=== PATIENT | female | born 1995 | race Asian ===

== ENCOUNTER → 2016-03-21 | Outpatient (REF) | payer OTHER ==
[2016-03-21 18:10] LABS: PERCENT SATURATION 56.4 % (13.2-37.4)
== END ==
LOC: M LAB REF 16:21
PROVIDERS: ATTEND Internal Medicine Medical Oncology
DX: D56.8 Other thalassemias (principal)

== ENCOUNTER 2016-03-22 08:29 | Outpatient (CLI) | payer OTHER ==
[~2016-03-22] VITALS: Ht 160 cm; Wt 67.8 kg
[~2016-03-22 08:29] MED LIST: ACETAMINOPHEN TAB 650MG DOSE (2X325MG) PO SCH; diphenhydrAMINE 25 MG CAP PO SCH
[2016-03-22 10:21] VITALS: BP 118/74
[2016-03-22 14:00] VITALS: BP 118/74
== END 2016-03-22 17:00 | disposition home or self-care (01) ==
LOC: M OPCLI4PR 08:29 → M PED 08:33 → M OPCLI4PR 17:00
PROVIDERS: ATTEND Internal Medicine Medical Oncology
DX: D56.9 Thalassemia, unspecified (principal)
CPT/HCPCS: 36430; P9016

== ENCOUNTER → 2016-04-16 | Outpatient (REF) | payer OTHER ==
[~2016-04-16] MED LIST changes: -ACETAMINOPHEN TAB 650MG DOSE (2X325MG) PO SCH; +BIRTHCONTROL PILL PO; +FOLI1TAB2 PO; +ZYRT10CA PO; +[UNRECOGNIZED DRUG - CODE] PO; -diphenhydrAMINE 25 MG CAP PO SCH
== END ==
LOC: M LAB REF 13:12
PROVIDERS: ATTEND Internal Medicine Medical Oncology
DX: D56.5 Hemoglobin E-beta thalassemia (principal); E83.119 Hemochromatosis, unspecified

== ENCOUNTER 2016-04-17 07:35 | Outpatient (CLI) | payer OTHER ==
[~2016-04-17] VITALS: Ht 160 cm; Wt 67.8 kg
[2016-04-17] MEDS ORDERED: ACETAMINOPHEN TAB 650MG DOSE (2X325MG) PO ONE (08:00)
[2016-04-17] MEDS ORDERED: diphenhydrAMINE 50 MG CAP PO ONE (08:00)
[2016-04-17] MEDS ORDERED: [UNRECOGNIZED DRUG - CODE] PO (08:16)
[2016-04-17] MEDS ORDERED: FOLI1TAB2 PO (08:17)
[2016-04-17] MEDS ORDERED: BIRTHCONTROL PILL PO (08:20)
[2016-04-17] MEDS ORDERED: ZYRT10CA PO (08:20)
== END 2016-04-17 13:35 | disposition home or self-care (01) ==
LOC: M INFU 07:35
PROVIDERS: ATTEND Internal Medicine Medical Oncology
DX: D56.5 Hemoglobin E-beta thalassemia (principal); Z79.899 Other long term (current) drug therapy; Z88.8 Allergy status to other drugs, medicaments and biological substances
CPT/HCPCS: 36415; 36430; 86850; 86900; 86901; 86920; P9016

== ENCOUNTER → 2016-05-14 | Outpatient (REF) | payer OTHER | LOC: M LAB REF 13:03 | PROVIDERS: ATTEND Internal Medicine Medical Oncology | DX: E83.118 Other hemochromatosis (principal); D56.8 Other thalassemias ==

== ENCOUNTER 2016-05-15 06:46 | Outpatient (CLI) | payer OTHER ==
[~2016-05-15] VITALS: Ht 160 cm; Wt 61.0 kg
[2016-05-15] MEDS ORDERED: diphenhydrAMINE 25 MG CAP PO SCH (07:00)
[2016-05-15] MEDS ORDERED: ACETAMINOPHEN TAB 650MG DOSE (2X325MG) PO SCH (07:01)
[2016-05-15 08:50] VITALS: BP 137/96
[2016-05-15 14:00] VITALS: BP 126/64
== END 2016-05-15 18:35 | disposition home or self-care (01) ==
LOC: M INFU 06:46 → M MSPAV 08:53 → M INFU 18:35
PROVIDERS: ATTEND Internal Medicine Medical Oncology
DX: D56.5 Hemoglobin E-beta thalassemia (principal)
CPT/HCPCS: 36415; 36430; 86850; 86920; P9016

== ENCOUNTER → 2016-06-11 | Outpatient (REF) | payer OTHER | LOC: M LAB REF 12:29 | PROVIDERS: ATTEND Internal Medicine Medical Oncology | DX: D56.5 Hemoglobin E-beta thalassemia (principal) ==

== ENCOUNTER → 2016-06-11 | Outpatient (REF) | payer OTHER ==
[2016-06-11 14:00] LABS: PERCENT SATURATION 47.4 % (13.2-37.4)
== END ==
LOC: M LAB REF 12:13
PROVIDERS: ATTEND Internal Medicine Medical Oncology
DX: E83.119 Hemochromatosis, unspecified (principal); D56.9 Thalassemia, unspecified

== ENCOUNTER 2016-06-12 07:18 | Outpatient (CLI) | payer OTHER ==
[~2016-06-12] VITALS: Ht 160 cm; Wt 67.8 kg
[~2016-06-12 07:18] MED LIST changes: +ACETAMINOPHEN TAB 650MG DOSE (2X325MG) PO SCH; +diphenhydrAMINE 25 MG CAP PO SCH
== END 2016-06-12 12:10 | disposition home or self-care (01) ==
LOC: M INFU 07:18
PROVIDERS: ATTEND Internal Medicine Medical Oncology
DX: D56.5 Hemoglobin E-beta thalassemia (principal); Z79.899 Other long term (current) drug therapy; Z79.3 Long term (current) use of hormonal contraceptives; Z88.8 Allergy status to other drugs, medicaments and biological substances
CPT/HCPCS: 36430; P9016

== ENCOUNTER → 2016-07-10 | Outpatient (REF) | payer OTHER ==
[~2016-07-10] MED LIST changes: -ACETAMINOPHEN TAB 650MG DOSE (2X325MG) PO SCH; -diphenhydrAMINE 25 MG CAP PO SCH
== END ==
LOC: M LAB REF 16:38
PROVIDERS: ATTEND Nurse Practitioner Family
DX: D56.5 Hemoglobin E-beta thalassemia (principal)

== ENCOUNTER 2016-07-11 08:05 | Outpatient (CLI) | payer OTHER ==
[2016-07-11] MEDS ORDERED: ACETAMINOPHEN TAB 650MG DOSE (2X325MG) PO SCH (09:00)
[2016-07-11] MEDS ORDERED: diphenhydrAMINE 25 MG CAP PO SCH (09:00)
== END 2016-07-11 12:30 | disposition home or self-care (01) ==
LOC: M INFU 08:05
PROVIDERS: ATTEND Internal Medicine Medical Oncology
DX: D56.5 Hemoglobin E-beta thalassemia (principal); Z88.8 Allergy status to other drugs, medicaments and biological substances; Z79.3 Long term (current) use of hormonal contraceptives; Z79.899 Other long term (current) drug therapy
CPT/HCPCS: 36430; P9016

== ENCOUNTER 2016-08-07 07:39 | Outpatient (CLI) | payer OTHER ==
[~2016-08-07] VITALS: Ht 160 cm; Wt 67.3 kg
[~2016-08-07 07:39] MED LIST changes: +ACETAMINOPHEN TAB 650MG DOSE (2X325MG) PO ONE; -FOLI1TAB2 PO; +FOLI1TAB4 PO; +diphenhydrAMINE 50 MG CAP PO ONE
== END 2016-08-07 12:15 | disposition home or self-care (01) ==
LOC: M INFU 07:39
PROVIDERS: ATTEND Internal Medicine Medical Oncology
DX: D56.5 Hemoglobin E-beta thalassemia (principal); Z88.8 Allergy status to other drugs, medicaments and biological substances; Z79.3 Long term (current) use of hormonal contraceptives; Z79.899 Other long term (current) drug therapy
CPT/HCPCS: 36430; P9016

== ENCOUNTER → 2016-08-30 | Outpatient (REF) | payer OTHER ==
[~2016-08-30] MED LIST changes: -ACETAMINOPHEN TAB 650MG DOSE (2X325MG) PO ONE; -diphenhydrAMINE 50 MG CAP PO ONE
[2016-08-30 19:24] LABS: PERCENT SATURATION 46.9 % (13.2-37.4)
== END ==
LOC: M LAB REF 17:06
PROVIDERS: ATTEND Internal Medicine Medical Oncology
DX: E83.119 Hemochromatosis, unspecified (principal); D56.5 Hemoglobin E-beta thalassemia

== ENCOUNTER 2016-08-31 07:02 | Outpatient (CLI) | payer OTHER ==
[~2016-08-31 07:02] MED LIST changes: +ACETAMINOPHEN TAB 650MG DOSE (2X325MG) PO SCH; +diphenhydrAMINE 25 MG CAP PO SCH
== END 2016-08-31 11:45 | disposition home or self-care (01) ==
LOC: M INFU 07:02
PROVIDERS: ATTEND Internal Medicine Medical Oncology
DX: D56.5 Hemoglobin E-beta thalassemia (principal); Z88.8 Allergy status to other drugs, medicaments and biological substances; Z79.3 Long term (current) use of hormonal contraceptives; Z79.899 Other long term (current) drug therapy
CPT/HCPCS: 36430; P9016

== ENCOUNTER → 2016-10-01 | Outpatient (REF) | payer OTHER ==
[~2016-10-01] MED LIST changes: -ACETAMINOPHEN TAB 650MG DOSE (2X325MG) PO SCH; -diphenhydrAMINE 25 MG CAP PO SCH
== END ==
LOC: M LAB REF 16:48
PROVIDERS: ATTEND Nurse Practitioner Family
DX: D56.5 Hemoglobin E-beta thalassemia (principal)

== ENCOUNTER → 2016-10-01 | Outpatient (REF) | payer OTHER ==
[2016-10-01 21:21] LABS: PERCENT SATURATION 41.8 % (13.2-45.0)
== END ==
LOC: M LAB REF 13:08
PROVIDERS: ATTEND Internal Medicine Medical Oncology
DX: D56.5 Hemoglobin E-beta thalassemia (principal)

== ENCOUNTER 2016-10-02 07:10 | Outpatient (CLI) | payer OTHER ==
[~2016-10-02] VITALS: Ht 160 cm; Wt 67.8 kg
[~2016-10-02 07:10] MED LIST changes: +ACETAMINOPHEN TAB 650MG DOSE (2X325MG) PO SCH; +diphenhydrAMINE 25 MG CAP PO SCH
== END 2016-10-02 11:50 | disposition home or self-care (01) ==
LOC: M INFU 07:10
PROVIDERS: ATTEND Internal Medicine Medical Oncology
DX: D56.5 Hemoglobin E-beta thalassemia (principal); Z88.8 Allergy status to other drugs, medicaments and biological substances; Z79.899 Other long term (current) drug therapy; Z79.3 Long term (current) use of hormonal contraceptives
CPT/HCPCS: 36430; P9016

== ENCOUNTER → 2016-10-29 | Outpatient (REF) | payer OTHER ==
[~2016-10-29] MED LIST changes: -ACETAMINOPHEN TAB 650MG DOSE (2X325MG) PO SCH; -diphenhydrAMINE 25 MG CAP PO SCH
[2016-10-29 18:32] LABS: PERCENT SATURATION 33.2 % (13.2-45.0)
== END ==
LOC: M LAB REF 16:26
PROVIDERS: ATTEND Nurse Practitioner Family
DX: E83.119 Hemochromatosis, unspecified (principal); D56.5 Hemoglobin E-beta thalassemia

== ENCOUNTER 2016-10-30 06:42 | Outpatient (CLI) | payer OTHER ==
[2016-10-30] MEDS ORDERED: diphenhydrAMINE 25 MG CAP PO SCH (07:00)
[2016-10-30] MEDS ORDERED: ACETAMINOPHEN TAB 650MG DOSE (2X325MG) PO SCH (07:01)
== END 2016-10-30 13:15 | disposition home or self-care (01) ==
LOC: M INFU 06:42
PROVIDERS: ATTEND Internal Medicine Medical Oncology
DX: D56.5 Hemoglobin E-beta thalassemia (principal); Z88.8 Allergy status to other drugs, medicaments and biological substances; Z79.899 Other long term (current) drug therapy
CPT/HCPCS: 36430; P9016

== ENCOUNTER → 2016-11-26 | Outpatient (REF) | payer OTHER ==
[2016-11-26 20:55] LABS: PERCENT SATURATION 46.8 % (13.2-45.0)
== END ==
LOC: M LAB REF 16:58
PROVIDERS: ATTEND Nurse Practitioner Family
DX: D56.9 Thalassemia, unspecified (principal)

== ENCOUNTER 2016-11-27 11:18 | Outpatient (CLI) | payer OTHER ==
[~2016-11-27] VITALS: Ht 160 cm; Wt 65.8 kg
[2016-11-27] VITALS (7 sets, daily range): BP systolic 112–130; BP diastolic 58–84
[~2016-11-27 11:18] MED LIST changes: +ACETAMINOPHEN TAB 650MG DOSE (2X325MG) PO SCH; +diphenhydrAMINE 25 MG CAP PO SCH
== END 2016-11-27 18:30 | disposition home or self-care (01) ==
LOC: M OPCLI4PR 11:18 → M PED 11:23 → M OPCLI4PR 18:30
PROVIDERS: ATTEND Nurse Practitioner Family
DX: D56.5 Hemoglobin E-beta thalassemia (principal); Z88.8 Allergy status to other drugs, medicaments and biological substances; Z79.899 Other long term (current) drug therapy
CPT/HCPCS: 36430; P9016

== ENCOUNTER → 2016-12-25 | Outpatient (REF) | payer OTHER ==
[~2016-12-25] MED LIST changes: -ACETAMINOPHEN TAB 650MG DOSE (2X325MG) PO SCH; -diphenhydrAMINE 25 MG CAP PO SCH
[2016-12-25 19:36] LABS: PERCENT SATURATION 34.7 % (13.2-45.0)
== END ==
LOC: M LAB REF 16:20
PROVIDERS: ATTEND Internal Medicine Medical Oncology
DX: D56.5 Hemoglobin E-beta thalassemia (principal)

== ENCOUNTER 2016-12-26 06:39 | Outpatient (CLI) | payer OTHER ==
[~2016-12-26] VITALS: Ht 160 cm; Wt 67.8 kg
[2016-12-26] MEDS ORDERED: diphenhydrAMINE 25 MG CAP PO SCH (07:00)
[2016-12-26] MEDS ORDERED: ACETAMINOPHEN TAB 650MG DOSE (2X325MG) PO SCH (07:01)
[2016-12-26] MEDS ORDERED: diphenhydrAMINE 25 MG CAP As Ordered ONE (07:05)
[2016-12-26] MEDS ORDERED: ACETAMINOPHEN 325 MG TAB As Ordered ONE (07:06)
== END 2016-12-26 13:30 | disposition home or self-care (01) ==
LOC: M INFU 06:39
PROVIDERS: ATTEND Internal Medicine Medical Oncology
DX: D56.5 Hemoglobin E-beta thalassemia (principal); Z88.8 Allergy status to other drugs, medicaments and biological substances; Z79.899 Other long term (current) drug therapy
CPT/HCPCS: 36430; P9016

== ENCOUNTER → 2017-01-22 | Outpatient (REF) | payer OTHER ==
[2017-01-22 19:01] LABS: PERCENT SATURATION 25.8 % (13.2-45.0)
== END ==
LOC: M LAB REF 16:51
PROVIDERS: ATTEND Nurse Practitioner Family
DX: D56.9 Thalassemia, unspecified (principal); Z88.8 Allergy status to other drugs, medicaments and biological substances

== ENCOUNTER 2017-01-23 10:15 | Outpatient (CLI) | payer OTHER ==
[~2017-01-23 10:15] MED LIST changes: +ACETAMINOPHEN TAB 650MG DOSE (2X325MG) PO SCH; +diphenhydrAMINE 25 MG CAP PO SCH
== END 2017-01-23 16:45 | disposition home or self-care (01) ==
LOC: M INFU 10:15
PROVIDERS: ATTEND Nurse Practitioner Family
DX: D56.5 Hemoglobin E-beta thalassemia (principal); Z88.8 Allergy status to other drugs, medicaments and biological substances; Z79.899 Other long term (current) drug therapy
CPT/HCPCS: 36430; P9016

== ENCOUNTER → 2017-02-21 | Outpatient (REF) | payer OTHER ==
[2017-02-21 21:00] LABS: FERRITIN 3962 NG/ML (8-252); IRON (FE) 472 UG/DL (50-170); TOTAL IRON BINDING CAPACITY 1432 UG/DL (250-450)
[2017-02-22 08:17] LABS: IMMEDIATE SPIN CROSSMATCH 1 2
== END ==
LOC: M LAB REF 18:30
DX: D56.8 Other thalassemias (principal)

== ENCOUNTER 2017-02-22 07:52 | Outpatient (CLI) | payer OTHER ==
[2017-02-22] MEDS: diphenhydrAMINE 25 MG CAP PO (08:07)
[2017-02-22] MEDS: ACETAMINOPHEN TAB 650MG DOSE (2X325MG) PO (08:07)
== END 2017-02-22 12:00 | disposition home or self-care (01) ==
LOC: M INFU 07:52
DX: D56.5 Hemoglobin E-beta thalassemia (principal); Z88.8 Allergy status to other drugs, medicaments and biological substances; Z79.899 Other long term (current) drug therapy
CPT/HCPCS: 36430

== ENCOUNTER → 2017-03-21 | Outpatient (REF) | payer OTHER ==
[2017-03-21 20:48] LABS: IRON (FE) 326 UG/DL (50-170); PERCENT SATURATION 55.5 % (13.2-45.0); TOTAL IRON BINDING CAPACITY 587 UG/DL (250-450)
[2017-03-21 20:56] LABS: FERRITIN 3337 NG/ML (8-252)
== END ==
LOC: M LAB REF 18:57
DX: D56.5 Hemoglobin E-beta thalassemia (principal); E83.119 Hemochromatosis, unspecified

== ENCOUNTER 2017-03-22 06:56 | Outpatient (CLI) | payer OTHER ==
[2017-03-22] MEDS: diphenhydrAMINE 25 MG CAP PO (07:12)
[2017-03-22] MEDS: ACETAMINOPHEN TAB 650MG DOSE (2X325MG) PO (07:12)
[2017-03-22 07:31] LABS: IMMEDIATE SPIN CROSSMATCH 1 2
== END 2017-03-22 12:00 | disposition home or self-care (01) ==
LOC: M INFU 06:56
DX: D56.9 Thalassemia, unspecified (principal); Z79.899 Other long term (current) drug therapy; Z88.8 Allergy status to other drugs, medicaments and biological substances
CPT/HCPCS: 36430

== ENCOUNTER → 2017-04-18 | Outpatient (REF) | payer OTHER ==
[2017-04-18 19:29] LABS: IRON (FE) 714 UG/DL (50-170); PERCENT SATURATION 36.4 % (13.2-45.0)
[2017-04-18 19:34] LABS: FERRITIN 2586 NG/ML (8-252); TOTAL IRON BINDING CAPACITY 1962 UG/DL (250-450)
== END ==
LOC: M LAB REF 17:08
DX: D56.5 Hemoglobin E-beta thalassemia (principal); E83.118 Other hemochromatosis
CPT/HCPCS: 83550

== ENCOUNTER → 2017-04-18 | Outpatient (REF) | payer OTHER ==
[2017-04-19 11:08] LABS: IMMEDIATE SPIN CROSSMATCH 1 2
== END ==
LOC: M LAB REF 18:04
PROVIDERS: Pediatrics
DX: E83.119 Hemochromatosis, unspecified (principal)
CPT/HCPCS: 86900

== ENCOUNTER 2017-04-19 10:37 | Outpatient (CLI) | payer OTHER ==
[2017-04-19] MEDS: diphenhydrAMINE 25 MG CAP PO (11:01)
[2017-04-19] MEDS: ACETAMINOPHEN TAB 650MG DOSE (2X325MG) PO (11:01)
== END 2017-04-19 15:15 | disposition home or self-care (01) ==
LOC: M INFU 10:37
DX: D56.9 Thalassemia, unspecified (principal); Z79.899 Other long term (current) drug therapy; Z88.8 Allergy status to other drugs, medicaments and biological substances
CPT/HCPCS: 36430

== ENCOUNTER 2017-06-14 12:50 | Outpatient (CLI) | payer OTHER ==
[2017-06-14] MEDS: ACETAMINOPHEN TAB 650MG DOSE (2X325MG) PO (13:56)
[2017-06-14] MEDS: diphenhydrAMINE 25 MG CAP PO (13:56)
[2017-06-14 15:08] LABS: IMMEDIATE SPIN CROSSMATCH 1 2
== END 2017-06-14 19:00 | disposition home or self-care (01) ==
LOC: M INFU 12:50
DX: D56.9 Thalassemia, unspecified (principal); Z79.899 Other long term (current) drug therapy; Z88.8 Allergy status to other drugs, medicaments and biological substances
CPT/HCPCS: 36430

== ENCOUNTER → 2017-07-09 | Outpatient (REF) | payer OTHER ==
[2017-07-10 14:56] LABS: IMMEDIATE SPIN CROSSMATCH 1 2
== END ==
LOC: M LAB REF 12:44
DX: D56.9 Thalassemia, unspecified (principal)
CPT/HCPCS: 86900

== ENCOUNTER 2017-07-10 12:15 | Outpatient (CLI) | payer OTHER ==
[2017-07-10] MEDS: ACETAMINOPHEN TAB 650MG DOSE (2X325MG) PO (12:50)
[2017-07-10] MEDS: diphenhydrAMINE 50 MG CAP PO (12:50)
== END 2017-07-10 17:00 | disposition home or self-care (01) ==
LOC: M INFU 12:15
DX: D56.9 Thalassemia, unspecified (principal); Z79.899 Other long term (current) drug therapy; Z79.3 Long term (current) use of hormonal contraceptives; Z88.8 Allergy status to other drugs, medicaments and biological substances
CPT/HCPCS: 36430

== ENCOUNTER → 2017-08-08 | Outpatient (REF) | payer OTHER ==
[2017-08-08 14:32] LABS: IRON (FE) 404 UG/DL (50-170)
[2017-08-08 14:38] LABS: FERRITIN 2255 NG/ML (8-252); TOTAL IRON BINDING CAPACITY 1263 UG/DL (250-450)
[2017-08-09 12:06] LABS: IMMEDIATE SPIN CROSSMATCH 1 3
== END ==
LOC: M LAB REF 10:33
DX: Z51.81 Encounter for therapeutic drug level monitoring (principal); Z79.899 Other long term (current) drug therapy; D56.5 Hemoglobin E-beta thalassemia; E83.111 Hemochromatosis due to repeated red blood cell transfusions

== ENCOUNTER 2017-08-09 06:54 | Outpatient (CLI) | payer OTHER ==
[2017-08-09] MEDS: ACETAMINOPHEN TAB 650MG DOSE (2X325MG) PO (07:51)
[2017-08-09] MEDS: diphenhydrAMINE 25 MG CAP PO (07:51)
== END 2017-08-09 14:40 | disposition home or self-care (01) ==
LOC: M INFU 06:54
DX: D56.9 Thalassemia, unspecified (principal); Z88.8 Allergy status to other drugs, medicaments and biological substances; Z79.899 Other long term (current) drug therapy; Z79.3 Long term (current) use of hormonal contraceptives
CPT/HCPCS: 36430

== ENCOUNTER → 2017-08-28 | Outpatient (REF) | payer OTHER ==
[2017-08-28 14:39] LABS: FERRITIN 1925 NG/ML (8-252); IRON (FE) 310 UG/DL (50-170); PERCENT SATURATION 51.5 % (13.2-45.0); TOTAL IRON BINDING CAPACITY 602 UG/DL (250-450)
[2017-08-29 08:17] LABS: IMMEDIATE SPIN CROSSMATCH 1 2
== END ==
LOC: M LAB REF 12:56
DX: Z51.81 Encounter for therapeutic drug level monitoring (principal); Z79.899 Other long term (current) drug therapy; D56.5 Hemoglobin E-beta thalassemia; E83.111 Hemochromatosis due to repeated red blood cell transfusions
CPT/HCPCS: 83550

== ENCOUNTER 2017-08-29 07:39 | Outpatient (CLI) | payer OTHER ==
[2017-08-29] MEDS ORDERED: NON-FORMULARY COMPOUNDED MEDICATION XX ×2 (08:00)
[2017-08-29] MEDS: diphenhydrAMINE 25 MG CAP PO ×2 (08:10)
[2017-08-29] MEDS: ACETAMINOPHEN TAB 650MG DOSE (2X325MG) PO ×2 (08:11)
== END 2017-08-29 12:20 | disposition home or self-care (01) ==
LOC: M INFU 07:39
DX: D56.9 Thalassemia, unspecified (principal); Z79.899 Other long term (current) drug therapy; Z88.8 Allergy status to other drugs, medicaments and biological substances
CPT/HCPCS: 36430

== ENCOUNTER → 2017-09-18 | Outpatient (REF) | payer OTHER ==
[2017-09-18 14:00] LABS: FERRITIN 1643 NG/ML (8-252); IRON (FE) 347 UG/DL (50-170); PERCENT SATURATION 22.7 % (13.2-45.0)
[2017-09-18 14:02] LABS: TOTAL IRON BINDING CAPACITY 1529 UG/DL (250-450)
[2017-09-19 11:59] LABS: IMMEDIATE SPIN CROSSMATCH 1 2
== END ==
LOC: M LAB REF 13:04
DX: E83.111 Hemochromatosis due to repeated red blood cell transfusions (principal); D56.5 Hemoglobin E-beta thalassemia; Z79.899 Other long term (current) drug therapy; Z51.81 Encounter for therapeutic drug level monitoring

== ENCOUNTER 2017-09-19 11:30 | Outpatient (CLI) | payer OTHER ==
[2017-09-19] MEDS: ACETAMINOPHEN TAB 650MG DOSE (2X325MG) PO (11:57)
[2017-09-19] MEDS: diphenhydrAMINE 25 MG CAP PO (11:57)
== END 2017-09-19 14:40 | disposition home or self-care (01) ==
LOC: M INFU 11:30
DX: D56.9 Thalassemia, unspecified (principal); Z88.8 Allergy status to other drugs, medicaments and biological substances; Z79.899 Other long term (current) drug therapy
CPT/HCPCS: 36430

== ENCOUNTER → 2017-10-08 | Outpatient (REF) | payer OTHER ==
[2017-10-08 14:58] LABS: FERRITIN 1493 NG/ML (8-252); IRON (FE) 350 UG/DL (50-170); PERCENT SATURATION 24.9 % (13.2-45.0); TOTAL IRON BINDING CAPACITY 1405 UG/DL (250-450)
[2017-10-10 09:58] LABS: IMMEDIATE SPIN CROSSMATCH 1 2
== END ==
LOC: M LAB REF 13:34
DX: Z51.81 Encounter for therapeutic drug level monitoring (principal); Z79.899 Other long term (current) drug therapy; D56.5 Hemoglobin E-beta thalassemia; E83.111 Hemochromatosis due to repeated red blood cell transfusions

== ENCOUNTER 2017-10-10 06:48 | Outpatient (CLI) | payer OTHER ==
[2017-10-10] MEDS: diphenhydrAMINE 25 MG CAP PO (07:11)
[2017-10-10] MEDS: ACETAMINOPHEN TAB 650MG DOSE (2X325MG) PO (07:12)
== END 2017-10-10 12:20 | disposition home or self-care (01) ==
LOC: M INFU 06:48
DX: D56.9 Thalassemia, unspecified (principal); Z88.8 Allergy status to other drugs, medicaments and biological substances
CPT/HCPCS: 36430

== ENCOUNTER → 2017-10-29 | Outpatient (REF) | payer OTHER ==
[2017-10-29 14:42] LABS: FERRITIN 1421 NG/ML (8-252); IRON (FE) 384 UG/DL (50-170); PERCENT SATURATION 47.1 % (13.2-45.0); TOTAL IRON BINDING CAPACITY 816 UG/DL (250-450)
[2017-10-30 12:49] LABS: IMMEDIATE SPIN CROSSMATCH 1 3
== END ==
LOC: M LAB REF 13:26
DX: D56.9 Thalassemia, unspecified (principal)

== ENCOUNTER 2017-10-30 07:50 | Outpatient (CLI) | payer OTHER ==
[2017-10-30] MEDS: ACETAMINOPHEN TAB 650MG DOSE (2X325MG) PO (08:17)
[2017-10-30] MEDS: diphenhydrAMINE 25 MG CAP PO (08:17)
== END 2017-10-30 15:15 | disposition home or self-care (01) ==
LOC: M INFU 07:50
DX: D56.1 Beta thalassemia (principal); Z79.899 Other long term (current) drug therapy; Z88.8 Allergy status to other drugs, medicaments and biological substances
CPT/HCPCS: 36430

== ENCOUNTER 2017-11-26 07:59 | Outpatient (CLI) | payer OTHER ==
[2017-11-26] MEDS: diphenhydrAMINE 25 MG CAP PO (08:35)
[2017-11-26] MEDS: ACETAMINOPHEN TAB 650MG DOSE (2X325MG) PO (08:35)
== END 2017-11-26 15:00 | disposition home or self-care (01) ==
LOC: M INFU 07:59
DX: D56.9 Thalassemia, unspecified (principal); Z88.8 Allergy status to other drugs, medicaments and biological substances
CPT/HCPCS: 36430

== ENCOUNTER 2017-12-26 07:48 | Outpatient (CLI) | payer OTHER ==
[2017-12-26] MEDS: ACETAMINOPHEN TAB 650MG DOSE (2X325MG) PO (08:15)
[2017-12-26] MEDS: diphenhydrAMINE 50 MG CAP PO (08:19)
== END 2017-12-26 12:45 | disposition home or self-care (01) ==
LOC: M INFU 07:48
DX: D56.5 Hemoglobin E-beta thalassemia (principal); E83.111 Hemochromatosis due to repeated red blood cell transfusions; Z79.899 Other long term (current) drug therapy; Z88.8 Allergy status to other drugs, medicaments and biological substances
CPT/HCPCS: 36430

== ENCOUNTER 2018-01-17 10:54 | Outpatient (CLI) | payer OTHER ==
[2018-01-17] MEDS: diphenhydrAMINE 25 MG CAP PO (11:44)
[2018-01-17] MEDS: ACETAMINOPHEN TAB 650MG DOSE (2X325MG) PO (11:45)
== END 2018-01-17 16:00 | disposition home or self-care (01) ==
LOC: M INFU 10:54
DX: D56.5 Hemoglobin E-beta thalassemia (principal)
CPT/HCPCS: 36430

== ENCOUNTER 2018-02-07 10:00 | Outpatient (CLI) | payer OTHER ==
[~2018-02-07] VITALS: Ht 160 cm; Wt 68.8 kg
[~2018-02-07 10:00] MED LIST changes: -ACETAMINOPHEN TAB 650MG DOSE (2X325MG) PO SCH; +FOLI1TAB11 PO; -FOLI1TAB4 PO; -diphenhydrAMINE 25 MG CAP PO SCH
[2018-02-07 10:25] VITALS: BP 111/71
[2018-02-07] MEDS ORDERED: diphenhydrAMINE 50 MG CAP PO ONE (10:45)
[2018-02-07] MEDS ORDERED: ACETAMINOPHEN TAB 650MG DOSE (2X325MG) PO ONE (10:45)
[2018-02-07 16:04] VITALS: BP 108/62
== END 2018-02-07 16:04 | disposition home or self-care (01) ==
LOC: M OPCLI4PR 10:00 → M PED 10:05 → M OPCLI4PR 16:04
PROVIDERS: ATTEND Internal Medicine Medical Oncology
DX: D56.5 Hemoglobin E-beta thalassemia (principal); Z88.8 Allergy status to other drugs, medicaments and biological substances
CPT/HCPCS: 36430; P9016

== ENCOUNTER 2018-02-28 08:37 | Outpatient (CLI) | payer OTHER ==
[~2018-02-28] VITALS: Ht 160 cm; Wt 68.8 kg
[2018-02-28] VITALS (7 sets, daily range): BP systolic 90–115; BP diastolic 53–69
[2018-02-28] MEDS ORDERED: diphenhydrAMINE 50 MG CAP PO ONE (09:00)
[2018-02-28] MEDS ORDERED: ACETAMINOPHEN TAB 650MG DOSE (2X325MG) PO ONE (09:00)
== END 2018-02-28 14:20 | disposition home or self-care (01) ==
LOC: M INFU 08:37
PROVIDERS: ATTEND Internal Medicine Medical Oncology
DX: D56.5 Hemoglobin E-beta thalassemia (principal)
CPT/HCPCS: 36430; P9016

== ENCOUNTER 2018-03-19 08:31 | Outpatient (CLI) | payer OTHER ==
[~2018-03-19] VITALS: Ht 160 cm; Wt 71.7 kg
[2018-03-19] VITALS (7 sets, daily range): BP systolic 90–108; BP diastolic 42–65
[~2018-03-19 08:31] MED LIST changes: +ACETAMINOPHEN TAB 650MG DOSE (2X325MG) PO SCH; +diphenhydrAMINE 25 MG CAP PO SCH
== END 2018-03-19 13:15 | disposition home or self-care (01) ==
LOC: M INFU 08:31
PROVIDERS: ATTEND Internal Medicine Medical Oncology
DX: D56.5 Hemoglobin E-beta thalassemia (principal)
CPT/HCPCS: 36430; P9016

== ENCOUNTER 2018-04-09 07:59 | Outpatient (CLI) | payer OTHER ==
[~2018-04-09] VITALS: Ht 160 cm; Wt 70.8 kg
[~2018-04-09 07:59] MED LIST changes: -ACETAMINOPHEN TAB 650MG DOSE (2X325MG) PO SCH; -diphenhydrAMINE 25 MG CAP PO SCH
[2018-04-09 08:05] VITALS: BP 106/55
[2018-04-09] MEDS: diphenhydrAMINE 50 MG CAP PO ONE (08:23)
[2018-04-09] MEDS: ACETAMINOPHEN TAB 650MG DOSE (2X325MG) PO ONE (08:24)
[2018-04-09 12:15] VITALS: BP 93/58
== END 2018-04-09 12:15 | disposition home or self-care (01) ==
LOC: M INFU 07:59
PROVIDERS: ATTEND Internal Medicine Medical Oncology
DX: D56.5 Hemoglobin E-beta thalassemia (principal); Z88.8 Allergy status to other drugs, medicaments and biological substances
CPT/HCPCS: 36430; P9016

== ENCOUNTER 2018-05-20 07:50 | Outpatient (CLI) | payer OTHER ==
[~2018-05-20] VITALS: Ht 160 cm; Wt 70.0 kg
[~2018-05-20 07:50] MED LIST changes: +ACETAMINOPHEN TAB 650MG DOSE (2X325MG) PO SCH; +diphenhydrAMINE 25 MG CAP PO SCH
[2018-05-20 07:58] VITALS: BP 109/67
[2018-05-20 12:45] VITALS: BP 92/60
== END 2018-05-20 12:45 | disposition home or self-care (01) ==
LOC: M INFU 07:50
PROVIDERS: ATTEND Internal Medicine Medical Oncology
DX: D56.5 Hemoglobin E-beta thalassemia (principal); E83.111 Hemochromatosis due to repeated red blood cell transfusions
CPT/HCPCS: 36430; P9016